=== PATIENT | male | born 1960 | race Caucasian/White ===

== ENCOUNTER → 2021-05-14 | Day surgery (SDC) | payer OTHER ==
[~2021-05-14] VITALS: Ht 175.3 cm; Wt 104.3 kg
[~2021-05-14] MED LIST: CIPRO500 MG PO; METRONIDAZOLE500 MG PO; NORCO 5-325 TA1 EACH PO; UNK CHOLESTEROL MED PO; ZOFRAN4 MG PO
== END | disposition home or self-care (01) ==
LOC: FAS 06:40
DX: Z12.11 Encounter for screening for malignant neoplasm of colon (principal); K57.30 Diverticulosis of large intestine without perforation or abscess without bleeding; E78.00 Pure hypercholesterolemia, unspecified; M19.90 Unspecified osteoarthritis, unspecified site; E78.2 Mixed hyperlipidemia; Z80.0 Family history of malignant neoplasm of digestive organs; Z79.891 Long term (current) use of opiate analgesic; Z79.899 Other long term (current) drug therapy
CPT/HCPCS: J2250; J2704; J7120

== ENCOUNTER 2021-09-11 14:27 | Emergency (ER) | payer OTHER ==
[2021-09-11 15:10] LABS: BASOPHIL 0.7 % (0-2); EOSINOPHIL 0.9 % (0-5); HCT 41.7 % (42.0-52.0); HGB 13.9 g/dl (13.2-18.0); LYMPHOCYTE 10.9 % (15-48); MCH 29.3 pg (25.0-31.0); MCHC 33.3 g/dL (32.0-36.0); MCV 87.8 fL (78.0-100.0); MONOCYTE 8.5 % (0-12); MPV 9.4 fL (6.0-9.5); NEUTROPHIL 78.7 % (41-80); NRBC 0; PLT 301 K/uL (150-400); RBC 4.75 M/uL (4.70-6.00); RDW 12.9 % (11.5-14.0); WBC 10.6 K/uL (4.0-10.5)
[2021-09-11 15:23] LABS: CREATININE 0.8 mg/dL (0.67-1.17); POTASSIUM 3.6 mmol/L (3.5-5.1)
[2021-09-11 15:37] LABS: INFLUENZA A NAA NEGATIVE (NEGATIVE)
[2021-09-11 15:56] LABS: CORONAVIRUS 2019 SARS-COV-2 POSITIVE (NEGATIVE)
[2021-09-11] MEDS ORDERED: VENTOLIN HFA IN18 GM INH (16:37)
[2021-09-11] MEDS ORDERED: MEDROL 4MG DOSEP4 MG PO (16:37)
== END 2021-09-11 17:17 | disposition home or self-care (01) ==
LOC: FER 14:27
PROVIDERS: Nurse Practitioner Family
DX: U07.1 COVID-19 (principal); J12.82 Pneumonia due to coronavirus disease 2019
CPT/HCPCS: 36415; 71045; 80048; 84484; 85025; 85379; 93005; J1100; U0002